=== PATIENT | female | born 1990 | race Two or more races ===

== ENCOUNTER 2023-07-31 11:50 | Emergency (ER) | payer OTHER ==
[~2023-07-31] VITALS: Ht 162.6 cm; Wt 67.6 kg
[2023-07-31 15:19] LABS: HEMATOCRIT 36.7 % (36.0-45.00); HEMOGLOBIN 12.4 g/dL (12.0-15.00); MEAN CELL VOLUME 92.9 fL (80.00-100.00); MEAN CORPUSCULAR HEMOGLOBIN 31.5 pg (27.00-32.0); MEAN CORPUSCULAR HGB CONC 33.9 g/dl (32.0-36.0); PLATELET COUNT 234 K/uL (150-450); RED BLOOD COUNT 3.95 M/uL (4.00-6.00); RED CELL DISTRIBUTION WIDTH 12.9 % (11.5-14.5)
[2023-07-31] MEDS ORDERED: ZYRTEC10 MG PO (15:38)
[2023-07-31] MEDS ORDERED: ZITHROMAX500 MG PO (15:38)
== END 2023-07-31 15:49 | disposition home or self-care (01) ==
LOC: ER 11:51
PROVIDERS: General Practice
DX: J06.9 Acute upper respiratory infection, unspecified (principal); Z20.822 Contact with and (suspected) exposure to COVID-19